=== PATIENT | female | born 1955 | race Caucasian/White ===

== ENCOUNTER 2017-01-16 21:09 | Emergency (ER) | payer OTHER ==
[~2017-01-16] VITALS: Ht 154.9 cm; Wt 60.3 kg
[2017-01-16] MEDS ORDERED: IV NORMAL SALINE 1,000ML 1,000 ML IV SCH (21:21)
--- NOTE | 2017-01-16 21:32 | PHYS DOC ---
Past History Past Medical History: No Pertinent History, UTI Past Surgical History: Appendectomy, Cholecystectomy Smoking: Quit Greater Than 1 Year Alcohol Use: Rarely Drug Use: None Adult General Chief Complaint Chief Complaint: FEVER HPI HPI Patient is a pleasant 62-year-old female with a history of partial hysterectomy , prior appendectomy, prior cholecystectomy who presents with 1 day of nausea and vomiting. She began yesterday having subjective fevers and chills with decreased appetite. She was at work when she noticed the chills and came home and slept all day. Today the symptoms have gotten progressively worse with a low -grade fever to 102 with one episode of nausea and vomiting nonbilious nonbloody. She has been on a ten-day course of antibiotics for a UTI. She is on day 9 of . She denies any travel outside the country, recent sick contacts, recent consumption of raw foods, recent handling of poultry or reptiles. She has minimal abdominal pain if any. She denies any chest pain, lightheaded dizziness or other symptoms. She feels like she is dehydrated as she has no appetite and has not had much to drink or eat or last day. Review of Systems Review of Systems Constitutional: She does describe fevers and chills. Eyes: Denies change in visual acuity, redness, or eye pain [] HENT: Denies nasal congestion or sore throat [] Respiratory: Denies cough or shortness of breath [] Cardiovascular: No additional information not addressed in HPI [] GI: Denies abdominal pain, but she has had nausea and vomiting nonbilious nonbloody. She denies diarrhea or loose stools. : Denies dysuria or hematuria [] Musculoskeletal: She does complain of myalgias in all extremities. Integument: Denies rash or skin lesions [] Neurologic: Denies headache, focal weakness or sensory changes [] Endocrine: Denies polyuria or polydipsia [] Current Medications Current Medications Current Medications Medications (Trade) Dose Ordered Sig/David Start Time Stop Time Status Last Admin Dose Admin Acetaminophen (Tylenol) 325 mg 1X ONCE 01/16/17 21:30 01/16/17 21:31 UNV Ondansetron HCl (Zofran) 4 mg 1X ONCE 01/16/17 21:30 01/16/17 21:31 UNV Sodium Chloride (Normal Saline Flush) 10 ml QSHIFT PRN 01/16/17 21:30 UNV Allergies Allergies Allergies Coded Allergies Type Severity Reaction Last Updated Verified No Known Drug Allergies 01/16/17 No Physical Exam Physical Exam Patient noted to be febrile with inappropriate tachycardia without hypertension hypoxia or tachypnea Constitutional: Well developed, well nourished, she obviously is nontoxic does not feel well. HENT: Normocephalic, atraumatic, bilateral external ears normal, dry mucous membranes no oral exudates, nose normal. [] Eyes: PERRLA, EOMI, conjunctiva normal, no discharge. [] Neck: Normal range of motion, no tenderness, supple, no stridor. [] Cardiovascular:Heart rate regular rhythm, no murmur [] Lungs & Thorax: Bilateral breath sounds clear to auscultation [] Abdomen: Bowel sounds normal, soft, no tenderness, no masses, no pulsatile masses. [] Skin: Warm, dry, no erythema, no rash. [] Back: No tenderness, no CVA tenderness. [] Extremities: No tenderness, no cyanosis, no clubbing, ROM intact, no edema. [] Neurologic: Alert and oriented X 3, normal motor function, normal sensory function, no focal deficits noted. [] Psychologic: Affect normal, judgement normal, mood normal. [] Current Patient Data Vital Signs Vital Signs Date Time Temp Pulse Resp B/P (MAP) Pulse Ox O2 Delivery O2 Flow Rate FiO2 01/16/17 21:23 102.3 101 20 94 Room Air Lab Results Laboratory Tests Test 01/16/17 21:39 White Blood Count 9.9 x10^3/uL (4.0-11.0) Red Blood Count 4.31 x10^6/uL (3.50-5.40) Hemoglobin 13.4 g/dL (12.0-15.5) Hematocrit 38.9 % (36.0-47.0) Mean Corpuscular Volume 90 fL (79-100) Mean Corpuscular Hemoglobin 31 pg (25-35) Mean Corpuscular Hemoglobin Concent 34 g/dL (31-37) Red Cell Distribution Width 13.4 % (11.5-14.5) Platelet Count 144 x10^3/uL (140-400) Neutrophils (%) (Auto) 85 % (31-73) H Lymphocytes (%) (Auto) 6 % (24-48) L Monocytes (%) (Auto) 7 % (0-9) Eosinophils (%) (Auto) 2 % (0-3) Basophils (%) (Auto) 0 % (0-3) Neutrophils # (Auto) 8.4 x10^3uL (1.8-7.7) H Lymphocytes # (Auto) 0.6 x10^3/uL (1.0-4.8) L Monocytes # (Auto) 0.7 x10^3/uL (0.0-1.1) Eosinophils # (Auto) 0.2 x10^3/uL (0.0-0.7) Basophils # (Auto) 0.0 x10^3/uL (0.0-0.2) Sodium Level 134 mmol/L (136-145) L Potassium Level 3.7 mmol/L (3.5-5.1) Chloride Level 99 mmol/L (98-107) Carbon Dioxide Level 24 mmol/L (21-32) Anion Gap 11 (6-14) Blood Urea Nitrogen 15 mg/dL (7-20) Creatinine 0.9 mg/dL (0.6-1.0) Estimated GFR (Cockcroft-Gault) 63.2 Glucose Level 111 mg/dL (70-99) H Lactic Acid Level 0.7 mmol/L (0.4-2.0) Calcium Level 8.9 mg/dL (8.5-10.1) EKG EKG [] Radiology/Procedures Radiology/Procedures [] Chest x-ray two-view that 9:47 PM or 01/16/[address] Pitt demonstrates no occult infiltrate consistent with pneumonia there is no cardiomegaly there is no pneumothorax or any evidence of pleural effusion. Normal looking chest x-ray. Course & Med Decision Making Course & Med Decision Making Pertinent Labs and Imaging studies reviewed. (See chart for details) I reviewed nursing notes vital signs and history and physical. Patient indicates no evidence of an elevated white blood cell count. Her vital signs were improved. Time is now 10:25 PM Patient tells me that their symptoms given during CC are improved. We reviewed labs have already back and the chest x-ray reviewed and family. Her pain and her nausea improved her fevers was gone. Time now is 10:47 PMPatient tells me that their symptoms given during CC are improved. Her fevers completely gone still pending response to therapy. As well as urinalysis. []Patient tells me that their symptoms given during CC are improved. We reviewed labs and radiology reports with patient and any family at bedside. Patient is afebrile her headache is now resolved she feels markedly better and wished to go home. Her abdomen is soft on reexamination I believe that she is suffering from a nausea and vomiting syndrome with mild dehydration no improved. Impression: Nausea and vomiting, low-grade fever likely gastroenteritis doubt appendicitis given the fact she's had her appendix removed. Disposition: PCP follow-up with increased fluid hydration Tylenol and Motrin for headache and fevers. Encourage use of Zofran as needed for nausea. Dragon Disclaimer Dragon Disclaimer This chart was dictated in whole or in part using Voice Recognition software in a busy, high-work load, and often noisy Emergency Department environment. It may contain unintended and wholly unrecognized errors or omissions. Departure Departure: Impression: Primary Impression: Nausea and vomiting Additional Impressions: Headache Fever Disposition: 01 HOME, SELF-CARE Condition: IMPROVED Patient Instructions: Fever, Adult, General Headache Without Cause, Nausea and Vomiting Additional Instructions: Please return for any new or increasing symptoms of pain, fever greater than 103.1 despite treatment blood in her stool or vomit or if you have any questions or concerns. Scripts Ondansetron (ZOFRAN ODT) 8 Mg Tab.rapdis 4 MG PO TID for 3 Days Prov: HUMAIRA PITT MD 01/17/17 Acetaminophen (TYLENOL) 325 Mg Tablet 1-2 TAB PO QID, #30 TAB 2 Refills Prov: HUMAIRA PITT MD 01/17/17 Naproxen Sodium (NAPROXEN SODIUM) 275 Mg Tablet 275 MG PO BID for 7 Days, #14 TAB Prov: HUMAIRA PITT MD 01/17/17 Problem Qualifiers HUMAIRA PITT MD Jan 16, 2017 21:32
[2017-01-16] MEDS ORDERED: ACETAMINOPHEN 325 MG TABLET PO ONE (21:45)
[2017-01-16] MEDS ORDERED: ONDANSETRON PF 4 MG/2 ML VIAL. IV ONE (21:45)
[2017-01-16 21:54] LABS: BASO % 0 % (0-3); EOS # 0.2 x10^3/uL (0.0-0.7); EOS % 2 % (0-3); HEMATOCRIT 38.9 % (36.0-47.0); HEMOGLOBIN 13.4 g/dL (12.0-15.5); LYMPH # 0.6 x10^3/uL (1.0-4.8); LYMPH % 6 % (24-48); MEAN CORPUSCULAR HEMOGLOBIN 31 pg (25-35); MEAN CORPUSCULAR HGB CONC 34 g/dL (31-37); MEAN CORPUSCULAR VOLUME 90 fL (79-100); MONO # 0.7 x10^3/uL (0.0-1.1); MONO % 7 % (0-9); NEUT # 8.4 x10^3uL (1.8-7.7); NEUT % 85 % (31-73); PLATELET COUNT 144 x10^3/uL (140-400); RED BLOOD COUNT 4.31 x10^6/uL (3.50-5.40); RED CELL DISTRIBUTION WIDTH 13.4 % (11.5-14.5); WHITE BLOOD COUNT 9.9 x10^3/uL (4.0-11.0)
[2017-01-16] MEDS: 0.9 % SODIUM CHLORIDE 10 ML DISP.SYRIN. IV PRN ×2 (21:57→23:53)
[2017-01-16 22:00] LABS: CALCIUM 8.9 mg/dL (8.5-10.1); CREATININE 0.9 mg/dL (0.6-1.0); GFR 63.2; POTASSIUM 3.7 mmol/L (3.5-5.1)
[2017-01-16] MEDS ORDERED: KETOROLAC 30 MG/ML VIAL. IV ONE (23:45)
[2017-01-17 00:58] LABS: BILIRUBIN,URINE NEG (NEG); CLARITY,URINE CLEAR; COLOR,URINE YELLOW; GLUCOSE,URINE NEG (NEG); NITRITE,URINE NEG (NEG); UROBILINOGEN,URINE 0.2 mg/dL (0.2 mg/dL)
[2017-01-17 00:59] LABS: BACTERIA,URINE FEW /HPF (0-FEW); RBC,URINE 0 /HPF (0-2); SQUAMOUS EPITHELIAL CELL,UR FEW /LPF
[2017-01-17] MEDS ORDERED: ONDA8TAB12 PO (01:08)
[2017-01-17] MEDS ORDERED: NAPR275T59 PO (01:08)
[2017-01-17] MEDS ORDERED: ACET325T9 PO (01:08)
[2017-01-17 01:13] VITALS: BP 93/43
--- NOTE | 2017-01-17 08:13 | RAD ---
Examination: 2 views of the chest. History: History of fever, chills, nausea, vomiting. Comparison: 10/30/2009. Findings: The cardiomediastinal silhouette grossly appears unremarkable. There is no acute infiltrate or visualized pneumothorax. Impression: No acute cardiopulmonary findings.
== END 2017-01-17 01:26 | disposition home or self-care (01) ==
LOC: ER 21:09
DX: R11.2 Nausea with vomiting, unspecified (principal); R51 Headache; R50.9 Fever, unspecified; R63.0 Anorexia; M79.1 Myalgia; Z87.891 Personal history of nicotine dependence; Z87.440 Personal history of urinary (tract) infections
CPT/HCPCS: 36415; 71020; 80048; 81001; 83605; 85027; 87040; 87086; 96361; 96374; 96375; 99285; J1885; J2405; J7030

== ENCOUNTER → 2017-01-30 | Outpatient (CLI) | payer OTHER ==
[2017-01-17 01:13] VITALS: BP 93/43
[~2017-01-30] MED LIST: ACET325T9 PO; NAPR275T59 PO; ONDA8TAB12 PO
--- NOTE | 2017-01-30 11:20 | RAD ---
EXAM: DIGITAL SCREEN BILAT W/CAD HISTORY: Routine Screening. COMPARISON: None available Standard mammographic views are obtained of the bilateral breasts. This study was interpreted with the benefit of Computerized Aided Detection (CAD). FINDINGS: The breast parenchyma shows scattered fibroglandular densities. Breast parenchyma level B.. There is no definite suspicious spiculated mass or worrisome cluster of microcalcifications. There are some benign-appearing calcifications identified. IMPRESSION: No definite suspicious mass. BI-RADS CATEGORY: 2 BENIGN FINDING RECOMMENDED FOLLOW-UP: 12M 12 MONTH FOLLOW-UP PQRS compliance statement: Patient information was entered into a reminder system with a target due date for the next mammogram. Mammography is a sensitive method for finding small breast cancers, but it does not detect them all and is not a substitute for careful clinical examination. A negative mammogram does not negate a clinically suspicious finding and should not result in delay in biopsying a clinically suspicious abnormality. "Our facility is accredited by the [employer] Mammography Program."
== END | disposition home or self-care (01) ==
LOC: MAMMO 10:41
PROVIDERS: ATTEND Family Medicine
DX: Z12.31 Encounter for screening mammogram for malignant neoplasm of breast (principal)
CPT/HCPCS: G0202; 77067

== ENCOUNTER → 2019-01-18 | Day surgery (SDC) | payer OTHER ==
[~2019-01-18] MED LIST changes: +ALBUTEROL SULFATE 2.5 MG/3 ML NEBU. NEB PRN; +ATROPINE 0.5 MG/5 ML DISP.SYRIN. IV PRN; +IV RINGERS SOLUTION,LACTATED 1,000 ML IV SCH; +LIDOCAINE 2% PF Vial for OR 5 ML VIAL. ONE; +MELA5TAB PO; +NALOXONE 0.4 MG/ML VIAL. IV PRN; +ONDANSETRON PF 4 MG/2 ML VIAL. IV PRN; +PROPOFOL 40 ML IV ONE; +diphenhydrAMINE 50 MG/ML VIAL IV PRN
[2019-01-18 12:10] VITALS: BP 120/78
== END ==
LOC: SURG 10:33
PROVIDERS: ATTEND Internal Medicine Gastroenterology
DX: Z12.11 Encounter for screening for malignant neoplasm of colon (principal); K57.30 Diverticulosis of large intestine without perforation or abscess without bleeding; E03.9 Hypothyroidism, unspecified; Z90.710 Acquired absence of both cervix and uterus; Z98.890 Other specified postprocedural states
CPT/HCPCS: 45378; J2704; J7120; J2001